=== PATIENT | female | born 1955 | race Caucasian/White ===

== ENCOUNTER 2023-10-15 21:06 | Emergency (ER) | payer MEDICARE, BC, OTHER | END 2023-10-15 22:35 | disposition home or self-care (01) | LOC: CSHERS 21:06 | DX: S01.01XA Laceration without foreign body of scalp, initial encounter (principal); I10 Essential (primary) hypertension; E78.00 Pure hypercholesterolemia, unspecified; W01.10XA Fall on same level from slipping, tripping and stumbling with subsequent striking against unspecified object, initial encounter; Y93.01 Activity, walking, marching and hiking; Z79.899 Other long term (current) drug therapy | CPT/HCPCS: 12002; 70450; 72125 ==